=== PATIENT | male | born 1975 | race African-American/Black ===

== ENCOUNTER 2016-07-03 16:39 | Emergency (ER) | payer MEDICAID ==
[~2016-07-03] VITALS: Ht 175.3 cm; Wt 75.0 kg
[2016-07-03 18:33] LABS: BASOPHILS % 0.8 % (0.0-2.0); CHLORIDE 108 mEq/L (98-107); EOSINOPHILS % 2.2 % (0.0-5.0); HEMATOCRIT. 40.3 % (42.0-52.0); HEMOGLOBIN. 13.8 g/dL (14.0-18.0); INDEX HEMOLYSI 2 (1-3); INDEX ICTERIC 1 (1-4); INDEX LIPEMIC 1 (1-3); LYMPHOCYTES % 27.1 % (20.0-50.0); MEAN CORPUSCULAR HEMOGLOBIN 32.1 pg (28.0-32.0); MEAN CORPUSCULAR HGB CONC 34.2 g/dL (31.0-37.0); MEAN CORPUSCULAR VOLUME 93.9 fL (80.0-94.0); MEAN PLATELET VOLUME 7.2 fl (7.4-10.4); MONOCYTES % 6.6 % (2.0-8.0); NEUTROPHILS % 63.3 % (40.0-76.0); PLATELET 252 x1000/uL (130-400); RED BLOOD CELL COUNT 4.29 mill/uL (4.7-6.1); WHITE BLOOD COUNT 6.8 x1000/uL (4.5-11.0)
[2016-07-03 18:35] LABS: PARTIAL THROMBOPLASTIN TIME 24.9 sec (24.0-34.0); PROTHROMBIN TIME 10.5 sec
[2016-07-03 18:36] LABS: ALBUMIN 3.3 g/dL (3.4-5.0); CALCIUM 8.2 mg/dL (8.5-10.1)
[2016-07-03 18:42] LABS: ALANINE AMINOTRANSFERASE 37 IU/L (13-61); ANION GAP 12; CARBON DIOXIDE 26 mEq/L (21-32); LIPASE 123 IU/L (73-393); UREA NITROGEN BLOOD 8 mg/dL (7-21); eGFR > 60 mL/min (>60)
[2016-07-03 18:44] LABS: TROPONIN I < 0.02 ng/mL (0.00-0.04)
[2016-07-03 19:12] LABS: *AMPHETAMINES SCREEN URINE PRESUMTIVE POSITIVE (NEGATIVE); *BARBITURATES SCREEN URINE NEGATIVE (NEGATIVE); *BENZODIAZEPINES SCREEN URINE NEGATIVE (NEGATIVE); *COCAINE SCREEN URINE NEGATIVE (NEGATIVE); CANNABINOID URINE SCREEN PRESUMTIVE POSITIVE (NEGATIVE); ECSTASY MDMA SCREEN URINE NEGATIVE (NEGATIVE); METHADONE URINE SCREEN NEGATIVE (NEGATIVE); OPIATES URINE SCREEN NEGATIVE (NEGATIVE); PHENCYCLIDINE URINE SCREEN NEGATIVE (NEGATIVE)
[2016-07-03 22:30] VITALS: BP 135/80
== END 2016-07-03 22:40 | disposition home or self-care (01) ==
LOC: ER 16:40
DX: R55 Syncope and collapse (principal); J45.909 Unspecified asthma, uncomplicated; E11.9 Type 2 diabetes mellitus without complications; N28.9 Disorder of kidney and ureter, unspecified
CPT/HCPCS: 36415; 71010; 80053; 80305; 83690; 84484; 85025; 85610; 85730; 93005; 99285

== ENCOUNTER 2016-07-03 23:14 | Emergency (ER) | payer MEDICAID ==
[~2016-07-03] VITALS: Ht 180.3 cm; Wt 72.0 kg
[2016-07-04 06:00] VITALS: BP 110/74
[2016-07-04] MEDS ORDERED: MECLIZINE 25MG TABLET PO ONE (06:30)
[2016-07-04] MEDS ORDERED: METOCLOPRAMIDE HCL 10MG/2ML VIAL IV ONE (06:30)
[2016-07-04] MEDS ORDERED: SODIUM CHLORIDE 0.9% 1,000 ML IV ONE (06:30)
== END 2016-07-04 08:16 | disposition left against medical advice (07) ==
LOC: ER 07-04 07:26
DX: R42 Dizziness and giddiness (principal); R51 Headache; R11.10 Vomiting, unspecified; F17.200 Nicotine dependence, unspecified, uncomplicated; F15.10 Other stimulant abuse, uncomplicated; Z98.890 Other specified postprocedural states; Y08.89XA Assault by other specified means, initial encounter; Y93.89 Activity, other specified; Y92.89 Other specified places as the place of occurrence of the external cause; Y99.8 Other external cause status
CPT/HCPCS: 99283; J7030; Z7610; J2765; J8597